=== PATIENT | male | born 1955 | race Caucasian/White ===

== ENCOUNTER 2018-10-05 08:09 | Day surgery (SDC) | payer BC ==
[~2018-10-05 08:09] MED LIST: Lactated Ringers 1,000 ML IV SCH; Lidocaine 1%/Sod Bicarbonate in NS 8.4% 1 ML Syringe IDERM PRN; Sodium Chloride 0.9% 10 ML Syringe FLUSH PRN
--- NOTE | 2018-10-05 09:22 | PCM.PREANE ---
Preanesthetic Assessment - Procedure Proposed Procedure: right 1st CMC joint trapezietomy with tight rope, left 1st CMC joint steroid injection - Anesthesia/Transfusion/Family Hx Anesthesia History: Prior Anesthesia Reaction Type of Anesthesia Reaction: Anesthesia Awareness (remembers induction during thyroid surgery ) Family History of Anesthesia Reaction: No Transfusion History: No Prior Transfusion(s) Intubation History: Unknown - Review of Systems General: No Symptoms Pulmonary: No Symptoms Cardiovascular: No Symptoms Gastrointestinal: No Symptoms Neurological: Headache Other: Reports: Diabetes, Thyroid Problems (thyroidectomy ) - Physical Assessment NPO Status Date: 10/04/18 NPO Status Time: 22:00 Pulse: 66 O2 Sat by Pulse Oximetry: 98 Respiratory Rate: 16 Blood Pressure: 149/109 Vital Signs: Last Vital Signs Temp 36.7 C 10/05/18 08:30 Pulse 66 10/05/18 08:30 Resp 16 10/05/18 08:30 BP 149/109 H 10/05/18 08:30 Pulse Ox 94 L 10/05/18 08:30 Height: 1.83 m Weight: 94.347 kg ASA Class: 2 Mental Status: Alert & Oriented x3 Airway Class: Mallampati = 3 Dentition: Reports: Zeb(s), Bridge (permanent ) Thyro-Mental Finger Breadths: 2 Mouth Opening Finger Breadths: 4 ROM/Head Extension: Limited/Partial (cervical neck pain) Lungs: Clear to Auscultation, Normal Respiratory Effort Cardiovascular: Regular Rate, Regular Rhythm - Lab Values: Laboratory Last Values POC Glucose 104 mg/dL (80-115) 10/05/18 08:46 MRSA (PCR) Negative 09/26/18 10:10 - Allergies Allergies/Adverse Reactions: Allergies Allergy/AdvReac Type Severity Reaction Status Date / Time No Known Allergies Allergy Verified 10/04/18 13:27 - Blood Blood Available: No - Anesthesia Plan Pre-Op Medication Ordered: None - Acknowledgements Anesthesia Type Planned: General Anesthesia Pt an Appropriate Candidate for the Planned Anesthesia: Yes Alternatives and Risks of Anesthesia Discussed w Pt/Guardian: Yes Pt/Guardian Understands and Agrees with Anesthesia Plan: Yes PreAnesthesia Questionnaire HEENT History: Reports: Impaired Vision, Other (See Below) Other HEENT History: wears glasses Cardiovascular History: Reports: CAD, High Cholesterol, Hypertension, Stents Respiratory History: Reports: None Genitourinary History: Reports: None 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: 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: 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 Musculoskeletal History: Reports: Osteoarthritis, Other (See Below) Other Musculoskeletal History: right wrist pain Neurological History: Reports: Other (See Below) Other Neuro History: chronic cervical pain Psychiatric History: Reports: None Endocrine/Metabolic History: Reports: Diabetes, Type II, Hypothyroidism, Other ( See Below) Other Endocrine/Metabolic History: hashimotos Hematologic History: Reports: None Immunologic History: Reports: None Oncologic (Cancer) History: Reports: None Dermatologic History: Reports: Other (See Below) Other Dermatologic History: skin lesion, skin tag, sebaceous cyst - Past Surgical History HEENT Surgical History: Reports: Tonsillectomy Cardiovascular Surgical History: Reports: None Respiratory Surgical History: Reports: None GI Surgical History: Reports: Colonoscopy, EGD Female Surgical History: Reports: None Male Surgical History: Reports: None Endocrine Surgical History: Reports: Thyroidectomy Neurological Surgical History: Reports: None Musculoskeletal Surgical History: Reports: Other (See Below) Other Musculoskeletal Surgeries/Procedures:: rotator cuff repair x 2 Oncologic Surgical History: Reports: None - SUBSTANCE USE Smoking Status *Q: Never Smoker Recreational Drug Use History: No - HOME MEDS Home Medications: Home Meds Levothyroxine [Levothroid] 137 mcg PO DAILY 03/14/14 [History] metFORMIN [Glucophage] 1,000 mg PO BEDTIME 03/14/14 [History] Hydrochlorothiazide/Losartan [Hyzaar 100-12.5 MG] 1 tab PO DAILY 10/28/14 [ History] Vitamin B Complex 1 each PO DAILY 10/28/14 [History] Diclofenac Sodium [Voltaren 1% Gel] 1 dose TOP DAILY PRN 10/04/18 [History] Imipramine HCl [Tofranil] 25 mg PO BEDTIME 10/04/18 [History] Isogenic Joint Cap 2 cap PO DAILY 10/04/18 [History] atorvaSTATin Calcium [Atorvastatin Calcium] 20 mg PO DAILY 10/04/18 [History] valACYclovir [Valtrex] 1,000 mg PO BID PRN 10/04/18 [History] Acetaminophen/HYDROcodone [[place] 325-5 MG] 1 - 2 tab PO Q6H PRN #40 tablet 10/05 [Rx] - CURRENT (IN HOUSE) MEDS Current Meds: Current Medications Lactated Ringer's (Ringers, Lactated) 1,000 mls @ 125 mls/hr IV ASDIRECTED SHOAIB Stop: 12/06/18 23:00 Last Admin: 10/05/18 08:46 Dose: 125 mls/hr Lidocaine/Sodium Bicarbonate (Buffered Lidocaine 1% In Ns 8.4%) 0.25 ml IDERM ONETIME PRN PRN Reason: Prior to IV Start Stop: 10/05/18 18:00 Last Admin: 10/05/18 08:46 Dose: 0.25 ml Sodium Chloride (Saline Flush) 10 ml FLUSH ASDIRECTED PRN PRN Reason: Keep Vein Open Stop: 10/05/18 18:00
[2018-10-05] MEDS ORDERED: Propofol 200 MG/20 ML SDV ONE (09:42)
[2018-10-05] MEDS ORDERED: fentaNYL 250 MCG/5 ML SDV ONE (09:43)
[2018-10-05] MEDS ORDERED: Midazolam 1 MG/ML 2 ML SDV ONE ×2 (09:43→11:34)
[2018-10-05] MEDS ORDERED: Lidocaine 1% 4 ML ONE (09:44)
[2018-10-05] MEDS ORDERED: Ondansetron 4 MG/2 ML SDV ONE (09:45)
[2018-10-05] MEDS ORDERED: ceFAZolin 1 GM Vial ONE (09:46)
[2018-10-05] MEDS ORDERED: ePHEDrine/Normal Saline 25 MG/5 ML Syringe ONE (10:54)
[2018-10-05] MEDS: Bupivacaine 0.25% 30 ML SDV ONE ×4 (11:10→11:49)
[2018-10-05] MEDS: Triamcinolone Acetonide 40 MG/ML 1 ML MDV ONE ×2 (11:12→11:49)
[2018-10-05] MEDS ORDERED: Lactated Ringers 1,000 ML ONE (11:14)
[2018-10-05] MEDS ORDERED: Rocuronium 50 MG/5 ML Vial ONE (11:32)
[2018-10-05] MEDS ORDERED: diphenhydrAMINE 50 MG/ML SDV IVPUSH PRN (12:06)
[2018-10-05] MEDS ORDERED: fentaNYL 100 MCG/2 ML SDV IVPUSH PRN (12:06)
[2018-10-05] MEDS ORDERED: Ondansetron 4 MG/2 ML SDV IVPUSH PRN (12:06)
[2018-10-05] MEDS ORDERED: Meperidine 50 MG/ML Vial IVPUSH PRN (12:06)
--- NOTE | 2018-10-05 12:06 | PCM.POSTAN ---
POST ANESTHESIA ASSESSMENT - MENTAL STATUS Mental Status: Other (drowsy ) - VITAL SIGNS Pulse Rate: 95 SaO2: 95 Resp Rate: 19 Blood Pressure: 152/86 Temperature: 98 C - RESPIRATORY Respiratory Status: Respiratory Rate WNL, Airway Patent, O2 Saturation Stable - CARDIOVASCULAR CV Status: Pulse Rate WNL, Blood Pressure Stable - GASTROINTESTINAL GI Status: No Symptoms - PAIN Pain Score: 4 (treated ) - POST OP HYDRATION Hydration Status: Adequate & Stable
[2018-10-05] MEDS ORDERED: Ketorolac 30 MG/ML SDV IVPUSH SCH (12:15)
[2018-10-05] MEDS ORDERED: Acetaminophen/HYDROcodone 325-5 MG Tab PO PRN (12:18)
[2018-10-05 14:05] VITALS: BP 151/95
--- NOTE | 2018-10-05 14:08 | PCM48HPAN ---
Post Anesthesia Note - EVALUATION WITHIN 48HRS OF ANESTHETIC Vital Signs in Normal Range: Yes Patient Participated in Evaluation: Yes Respiratory Function Stable: Yes Airway Patent: Yes Cardiovascular Function Stable: Yes Hydration Status Stable: Yes Pain Control Satisfactory: Yes Nausea and Vomiting Control Satisfactory: Yes Mental Status Recovered: Yes
--- NOTE | 2018-10-05 14:27 | CR ---
Right wrist: Three fluoroscopic spot views were obtained of the right wrist. Study obtained utilizing C-arm device. Exam shows resection of the trapezium bone. Fixation anchors are noted between the first and second metacarpals. Fluoroscopy time is given as 8.0 seconds. Impression: 1. Operative study as noted above. Diagnostic code #2
--- NOTE | 2018-10-16 07:14 | PCM.OPNOTE ---
- General Post-Op/Procedure Note Date of Surgery/Procedure: 10/05/18 Operative Procedure(s): right first carpometacarpal joint trapeziectomy with right rope suspension and left first carpometacarpal joint injection Pre Op Diagnosis: bilateral basilar thumb joint osteoarthrosis Post-Op Diagnosis: Same Anesthesia Technique: General LMA, Local Primary Surgeon: Hai Acosta Anesthesia Provider: Lucy Beckford Delimber Operator: Jina Lopez in mLs: 5 Complications: None Condition: Good
--- NOTE | 2018-10-16 09:20 | OR ---
DATE OF OPERATION: 10/05/2018 SURGEON: Hai Acosta MD OPERATION PERFORMED: Right first carpometacarpal joint trapeziectomy with tight rope suspension and left first carpometacarpal joint injection. PREOPERATIVE DIAGNOSIS: Bilateral basilar thumb joint osteoarthrosis. POSTOPERATIVE DIAGNOSIS: Bilateral basilar thumb joint osteoarthrosis. ANESTHESIA: General LMA with local. ANESTHESIA PROVIDER: Osvaldo Patel. MARZIPAN MOLDER: Jina Lopez PA-C. ESTIMATED BLOOD LOSS: 5 mL. COMPLICATIONS: None. CONDITION: Stable. DESCRIPTION OF PROCEDURE: The patient was identified in the preop holding area. Proper site was marked and identified by the surgeon. The patient was taken back to the operating theater where after adequate anesthesia, the patient's right upper extremity was sterilely prepped and draped in the usual sterile fashion. OR time-out was performed. The patient received 2 g of IV Ancef. At this time, the right upper extremity was exsanguinated and tourniquet was insufflated to 225 mmHg. Standard dorsal incision was made and centered over the first carpometacarpal joint. This was taken down to the thumb extensor which was then retracted laterally and a capsulotomy was then performed. Care was taken to protect the neurovascular bundle at this time. Once the capsulotomy was performed, the trapezium was identified and a rongeur as well as an osteotome was used to resect the trapezium and hole. C-arm fluoroscopy was utilized to make sure that there were no remaining fragments of the trapezium. Once this was completely resected, a guide pin for the Arthrex TightRope was placed at the radial side of the base of the first metacarpal into the midportion of the second metacarpal under direct C-arm fluoroscopy as well as visualization. It was found to have adequate purchase in both bones. The EndoButton was then fixated on the first metacarpal and then another one was on the second metacarpal. This was then tensioned so the patient could get the palm flat on the table with good bounce back, but not over tensioned or undertensioned. At this time, this was then tied and found to have adequate positioning under C-arm fluoroscopy. Adequate saline was irrigated through the wound. 2-0 Vicryl was used for closure of the capsule, 3-0 Vicryl was used subcutaneously, and skin closure was with Monocryl at this time. The patient was placed in sterile soft dressing and a splint, and after this was completed, 1 mL of 40 mg Kenalog and 2 mL of 0.25% Marcaine were injected to the left first basilar thumb joint. The patient tolerated both procedures well and was sent to the PACU in stable condition. GIANCARLO /[id number]
== END 2018-10-05 14:13 | disposition home or self-care (01) ==
LOC: JD.SDS 08:09
PROVIDERS: ATTEND Orthopaedic Surgery
DX: M18.0 Bilateral primary osteoarthritis of first carpometacarpal joints (principal); E66.3 Overweight; I10 Essential (primary) hypertension; I25.10 Atherosclerotic heart disease of native coronary artery without angina pectoris; E06.3 Autoimmune thyroiditis; E11.9 Type 2 diabetes mellitus without complications; E78.5 Hyperlipidemia, unspecified; Z79.82 Long term (current) use of aspirin; Z79.84 Long term (current) use of oral hypoglycemic drugs; Z68.28 Body mass index [BMI] 28.0-28.9, adult
CPT/HCPCS: 20600; 25447; 76000; 82962; 87641; A9270; C1776; J0690; J2250; J2405; J2704; J3010; J3301; J3490; J7050; J7120; 01830; J2001

== ENCOUNTER 2020-09-29 08:03 | Day surgery (SDC) | payer MEDICARE, BC ==
[~2020-09-29 08:03] MED LIST changes: +Acetaminophen 325 MG Tab PO SCH; +Dexamethasone 4 MG/ML 5 ML MDV ONE; +Ketamine 500 mg/10 ML MDV ONE; +Ketorolac 30 MG/ML SDV ONE; +Lactated Ringers 1,000 ML ONE; +Lidocaine 1% 4 ML ONE; +Midazolam 1 MG/ML 2 ML SDV ONE; +Ondansetron 4 MG/2 ML SDV ONE; +Pregabalin 25 MG Cap PO SCH; +Propofol 200 MG/20 ML SDV ONE; +ceFAZolin 1 GM Vial ONE; +oxyCODONE ER 10 MG TAB.ER PO SCH
[2020-09-29] MEDS ORDERED: Ondansetron 4 MG/2 ML SDV IVPUSH PRN (08:53)
--- NOTE | 2020-09-29 08:53 | PCM.PREANE ---
Preanesthetic Assessment - Procedure Proposed Procedure: Left Total Knee Arthroplasty Right Knee Steroid Injection - Anesthesia/Transfusion/Family Hx Anesthesia History: Prior Anesthesia Reaction (Urinary Retention with General Anesthesia in the past.) Family History of Anesthesia Reaction: No Transfusion History: No Prior Transfusion(s) Intubation History: Unknown - Review of Systems General: No Symptoms Pulmonary: No Symptoms (Never a smoker) Cardiovascular: Other (Sent x1 placed in 2013. No further cardiac issues since stent placement. Recent ECHO EF 60-65%, grade I diastolic dysfunction. ) Gastrointestinal: No Symptoms Neurological: Dizziness (Recent Carotid dopplers done. ) Other: Reports: Diabetes (type II, on oral agent for control. ) - Physical Assessment NPO Status Date: 09/28/20 NPO Status Time: 21:30 Vital Signs: Last Vital Signs Temp 36.6 C 09/29/20 08:05 Pulse 89 09/29/20 08:05 Resp 16 09/29/20 08:05 BP 141/93 H 09/29/20 08:05 Pulse Ox 95 09/29/20 08:05 Height: 1.83 m Weight: 92.533 kg ASA Class: 2 Mental Status: Alert & Oriented x3 Airway Class: Mallampati = 3 Dentition: Reports: Bridge (Upper Front Permanent) Thyro-Mental Finger Breadths: 3 Mouth Opening Finger Breadths: 3 ROM/Head Extension: Full Lungs: Clear to Auscultation, Normal Respiratory Effort Cardiovascular: Regular Rate, Regular Rhythm - Lab Values: Laboratory Last Values MRSA (PCR) Negative 09/17/20 16:50 - Allergies Allergies/Adverse Reactions: Allergies Allergy/AdvReac Type Severity Reaction Status Date / Time No Known Allergies Allergy Verified 09/24/20 11:43 - Anesthesia Plan Pre-Op Medication Ordered: Anxiolytic - Acknowledgements Anesthesia Type Planned: Spinal Pt an Appropriate Candidate for the Planned Anesthesia: Yes Alternatives and Risks of Anesthesia Discussed w Pt/Guardian: Yes Pt/Guardian Understands and Agrees with Anesthesia Plan: Yes PreAnesthesia Questionnaire HEENT History: Reports: None Other HEENT History: wears glasses Cardiovascular History: Reports: Angina, CAD, Hypertension Other Cardiovascular History: hyperlipidemia Respiratory History: Reports: SOB Gastrointestinal History: Reports: None Genitourinary History: Reports: None 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 Musculoskeletal History: Reports: Back Pain, Chronic, Osteoarthritis Other Musculoskeletal History: knee pain, Neurological History: Reports: None Other Neuro History: chronic cervical pain Psychiatric History: Reports: None Other Psychiatric History: insomnia Endocrine/Metabolic History: Reports: Diabetes, Type II, Hypothyroidism Other Endocrine/Metabolic History: hashimotos Hematologic History: Reports: None Immunologic History: Reports: None Oncologic (Cancer) History: Reports: None Dermatologic History: Reports: Other (See Below) Other Dermatologic History: skin lesion, skin tag, sebaceous cyst - Past Surgical History HEENT Surgical History: Reports: None Cardiovascular Surgical History: Reports: None GI Surgical History: Reports: None Male Surgical History: Reports: None Endocrine Surgical History: Other Endocrine Surgeries/Procedures: thyroid surgery Musculoskeletal Surgical History: Reports: Shoulder Surgery Oncologic Surgical History: Reports: None - SUBSTANCE USE Tobacco Use Status *Q: Never Tobacco User Recreational Drug Use History: No - HOME MEDS Home Medications: Home Meds Levothyroxine [Levothroid] 137 mcg PO DAILY 03/14/14 [History] metFORMIN [Glucophage] 500 mg PO BID 03/14/14 [History] Hydrochlorothiazide/Losartan [Hyzaar 100-12.5 MG] 1 tab PO DAILY 10/28/14 [Hist ory] Vitamin B Complex 1 each PO DAILY 10/28/14 [History] Diclofenac Sodium [Voltaren 1% Gel] 1 dose TOP DAILY PRN 10/04/18 [History] Isogenic Joint Cap 2 cap PO DAILY 10/04/18 [History] atorvaSTATin Calcium [Atorvastatin Calcium] 20 mg PO DAILY 10/04/18 [History] Cholecalciferol (Vitamin D3) [Vitamin D] 1 tab PO DAILY 09/24/20 [History] Nitroglycerin [Nitrostat] 0.4 mg PO ASDIRECTED PRN 09/24/20 [History] Aspirin [Adult Low Dose Aspirin EC] 81 mg PO DAILY 09/29/20 [History] Aspirin [Aspirin EC] 325 mg PO BID #84 tab 09/29/20 [Rx] Cyclobenzaprine [Flexeril] 10 mg PO BID PRN #20 tab 09/29/20 [Rx] oxyCODONE 5 - 10 mg PO Q4H PRN #60 tab 09/29/20 [Rx] - CURRENT (IN HOUSE) MEDS Current Meds: Current Medications Acetaminophen (Tylenol) 975 mg PO NOW SHOAIB Stop: 09/29/20 16:00 Last Admin: 09/29/20 08:13 Dose: 975 mg Documented by: Morphine Sulfate 8 mg/Epinephrine HCl 0.3 mg/Cefuroxime Sodium 750 mg/Ketorolac Tromethamine 30 mg/Sodium Chloride 7.9 ml 0 mg .XX ASDIRECTED PRN PRN Reason: Pain Stop: 09/29/20 13:00 Lactated Ringer's (Ringers, Lactated) 1,000 mls @ 125 mls/hr IV ASDIRECTED SHOAIB Stop: 09/29/20 23:00 Lidocaine/Sodium Bicarbonate (Buffered Lidocaine 1% In Ns 8.4%) 0.25 ml IDERM ONETIME PRN PRN Reason: Prior to IV Start Stop: 09/29/20 18:00 Oxycodone HCl (Oxycontin) 10 mg PO ONETIME SHOAIB Stop: 09/29/20 16:00 Last Admin: 09/29/20 08:13 Dose: 10 mg Documented by: Pregabalin (Lyrica) 50 mg PO ONETIME SHOAIB Stop: 09/29/20 16:00 Last Admin: 09/29/20 08:13 Dose: 50 mg Documented by: Sodium Chloride (Saline Flush) 10 ml FLUSH ASDIRECTED PRN PRN Reason: Keep Vein Open Stop: 09/29/20 18:00 Discontinued Medications Bupivacaine HCl (Sensorcaine-Mpf 0.25%) Confirm Administered Dose 40 ml .ROUTE .STK-MED ONE Stop: 09/29/20 08:15 Cefazolin Sodium (Ancef) Confirm Administered Dose 2 gm .ROUTE .STK-MED ONE Stop: 09/29/20 07:46 Dexamethasone (Dexamethasone) Confirm Administered Dose 20 mg .ROUTE .STK-MED ONE Stop: 09/29/20 07:47 Lactated Ringer's (Ringers, Lactated) Confirm Administered Dose 1,000 mls @ as directed .ROUTE .STK-MED ONE Stop: 09/29/20 07:46 Lidocaine HCl (Xylocaine-Mpf 1%) Confirm Administered Dose 4 mls @ as directed .ROUTE .STK-MED ONE Stop: 09/29/20 07:47 Ketamine HCl (Ketalar) Confirm Administered Dose 500 mg .ROUTE .STK-MED ONE Stop: 09/29/20 07:47 Ketorolac Tromethamine (Toradol) Confirm Administered Dose 30 mg .ROUTE .STK-MED ONE Stop: 09/29/20 07:46 Midazolam HCl (Versed 1 Mg/Ml) Confirm Administered Dose 2 mg .ROUTE .STK-MED ONE Stop: 09/29/20 07:47 Ondansetron HCl (Zofran) Confirm Administered Dose 4 mg .ROUTE .STK-MED ONE Stop: 09/29/20 07:47 Propofol (Diprivan 20 Ml) Confirm Administered Dose 600 mg .ROUTE .STK-MED ONE Stop: 09/29/20 07:47 Tranexamic Acid (Cyklokapron) Confirm Administered Dose 1,000 mg .ROUTE .STK-MED ONE Stop: 09/29/20 08:15 Triamcinolone Acetonide (Kenalog-40) Confirm Administered Dose 80 mg .ROUTE .STK-MED ONE Stop: 09/29/20 08:14 Vancomycin HCl (Vancomycin) Confirm Administered Dose 1 gm .ROUTE .STK-MED ONE Stop: 09/29/20 08:14
[2020-09-29] MEDS ORDERED: Midazolam 1 MG/ML 2 ML SDV ONE (09:04)
[2020-09-29] MEDS: Bupivacaine 0.25% 10 ML SDV ONE ×4 (09:58→10:49)
[2020-09-29] MEDS: Triamcinolone Acetonide 40 MG/ML 1 ML SDV ONE ×4 (09:59→10:49)
[2020-09-29] MEDS: Vancomycin 1 GM SDV ONE ×2 (09:59→10:37)
[2020-09-29] MEDS: Morphine 8 MG, EPINEPHrine 0.3 MG, Cefuroxime 750 MG, Ketorolac 30 MG, Sodium Chloride ... PRN ×10 (10:00→10:20)
[2020-09-29] MEDS ORDERED: Propofol 200 MG/20 ML SDV ONE (10:01)
[2020-09-29] MEDS ORDERED: EPINEPHrine 1 MG/ML SDV ONE (11:09)
[2020-09-29] MEDS ORDERED: Ropivacaine 0.5% 5 MG/ML 30 ML SDV ONE (11:09)
[2020-09-29] MEDS ORDERED: oxyCODONE 5 MG Tab PO PRN (11:35)
[2020-09-29] MEDS ORDERED: Cyclobenzaprine 10 MG Tab PO ONE (11:36)
[2020-09-29] MEDS: HYDROmorphone 0.5 MG/0.5 ML Syringe IVPUSH PRN ×2 (11:43→12:09)
[2020-09-29] MEDS: fentaNYL 100 MCG/2 ML SDV IVPUSH PRN ×2 (11:49→12:15)
--- NOTE | 2020-09-29 12:00 | PCM.POSTAN ---
POST ANESTHESIA ASSESSMENT - MENTAL STATUS Mental Status: Other (Drowsy) - VITAL SIGNS Vital Signs: Last Vital Signs Temp 36.3 C 09/29/20 11:45 Pulse 86 09/29/20 11:45 Resp 11 L 09/29/20 11:45 BP 156/93 H 09/29/20 11:45 Pulse Ox 98 09/29/20 11:45 1059 106/60 81 15 95% 97 F - RESPIRATORY Respiratory Status: Respiratory Rate WNL, Airway Patent, O2 Saturation Stable - CARDIOVASCULAR CV Status: Pulse Rate WNL, Blood Pressure Stable - GASTROINTESTINAL GI Status: No Symptoms - PAIN Pain Score: 0 - POST OP HYDRATION Hydration Status: Adequate & Stable
--- NOTE | 2020-09-29 12:03 | PCM.SN.2 ---
- Free Text/Narrative Note: Left selective femoral nerve block at the adductor canal for post-procedure pain control under US guidance requested by Dr. Acosta. Date: 09/29/20 Time Out: 1123 Start: 1123 End: 1127 Chart reviewed. Consent signed. Questions answered. Appropriate monitors applied. Time out performed. Left mid-shaft femur identified with ultrasound, scanning medially of femur, the femoral artery in the adductor canal visualized, and the femoral nerve located laterally to the artery. The skin was prepped lateral to the ultrasound probe with chlorahexadine times two. The 21ga 4 insulated block needle was inserted under direct ultrasound guidance into the adductor canal. 25mL of 0.5% ropivacaine with 1:200,000 epinephrine was injected circumferentially around the nerve with intermittent negative aspiration noted. Patient tolerated the procedure well. Sterile technique noted along with sterile gloves, mask, and sterile probe cover. See picture on progress note and vital signs on nurses notes. Block completed in PACU. Mitchel Santos CRNA
--- NOTE | 2020-09-29 14:11 | CR ---
PROCEDURE INFORMATION: Exam: XR Left Knee Exam date and time: 09/29/2020 11:21 AM Age: 65 years old Clinical indication: Screening exam; Post op; Prior surgery; Surgery date: Post- operative (0-2 days) TECHNIQUE: Imaging protocol: XR Left knee. Views: 1 or 2 views. COMPARISON: CR Knee Standing AP Bi 07/29/2020 1:53 PM FINDINGS: Bones/joints: A left total knee arthroplasty has been placed. There is anatomic alignment. No fractures are identified. Soft tissues: Normal. IMPRESSION: Status post left total knee arthroplasty. No fractures identified. Thank you for allowing us to participate in the care of your patient. Dictated and Authenticated by: Anish Chakraborty MD 09/29/2020 12:54 PM Central Time ([place] & [place]) [place]
[2020-09-29 15:11] VITALS: BP 142/94; PULSE 89
--- NOTE | 2020-10-06 07:32 | PCM.OPNOTE ---
- General Post-Op/Procedure Note Date of Surgery/Procedure: 09/29/20 Operative Procedure(s): bilateral knee osteoarthrosis Pre Op Diagnosis: left total knee arthroplasty with right knee corticosteroid injection Post-Op Diagnosis: Same Anesthesia Technique: Local, MAC, Spinal Primary Surgeon: Hai Acosta Anesthesia Provider: Ann Santos Flame Gouger: Jina Lopez Flame Gouger: Swapna Pham EBL in mLs: 5 Complications: None Condition: Good Free Text/Narrative:: 6 femur 5 tibia [id number] cemented patella 9mm
--- NOTE | 2020-10-07 14:42 | OR ---
DATE OF OPERATION: 09/29/2020 SURGEON: Hai Acosta MD OPERATION PERFORMED: Left total knee arthroplasty with right knee corticosteroid injection. PREOPERATIVE DIAGNOSIS: Bilateral knee osteoarthrosis. POSTOPERATIVE DIAGNOSIS: Bilateral knee osteoarthrosis. ANESTHESIA: Local MAC with spinal. ANESTHESIA PROVIDER: Kristina Coles. ASSISTANTS: Jina Lopez PA-C and Swapna Pham LPN ESTIMATED BLOOD LOSS: 5 mL. COMPLICATIONS: None. CONDITION: Stable. IMPLANTS: 1. [place] size 6 press-fit femur. 2. [place] size 5 press-fit tibial base plate. 3. [place] size 35 x 10 mm cemented asymmetric patella. 4. [place] size 5, 9 mm CS polyethylene insert. DESCRIPTION OF PROCEDURE: The patient was identified in the preop holding area. Proper site was marked and identified by the surgeon. The patient was taken back to the operating theater. After adequate anesthesia, the patient's left lower extremity had a nonsterile tourniquet applied and it was sterilely prepped and draped in the usual sterile fashion. OR time-out was performed. The patient received 2 g IV Ancef. At this time, the left lower extremity was exsanguinated. Tourniquet was insufflated to 300 mmHg. Standard medial parapatellar incision was made. Medial parapatellar arthrotomy was created. Deep fibers of the MCL were raised and anterior fat pad was resected. At this time, attention was turned to the patella. Patella measured 25, it was resected to a 15 for a 35 x 10 mm patella. Drill holes were then drilled and found to be in adequate position. The drill was then drilled in the distal femur and the intramedullary distal femoral cutting guide was then placed. 8 mm was resected off the distal femur and was found to be an adequate resection. Sizing guide was placed. It was found to be a size 6 press-fit CR femur that was shown on the implant record at the beginning of this dictation. The drill holes were drilled for the epicondylar axis using [place]itesides line and epicondyles as reference. At this time, the 4-in- 1 cutting block was placed. An anterior posterior and anterior and posterior chamfer cuts were then completed. Attention was turned to the tibia. The posterior medial lateral retractors were placed. The extramedullary tibial guide was placed. It was placed in the old footprint of the ACL. It was aligned with the center of the ankle and 0 degrees of slope, 9 mm was then resected off the unaffected side. There was found to be an acceptable reduction. At this time, posterior osteophytes were removed along with medial and lateral meniscus. A trial implant was placed with a correct sized tibia that was mentioned at the beginning of the dictation. A Harshad size 5, 9 mm CS polyethylene insert was then placed. The patient's knee was brought through range of motion. The patella was tracking centrally and was stable to varus and valgus stress. Alignment was found to be roughly at 0 degrees. The tibia was stamped and drilled in proper rotation. The universal tibial base plate was impacted in place. Next, the [place] size 6 press-fit CR femur impacted into place and the Harshad size 5, 9 mm CS polyethylene insert was placed. The patient's knee was brought into full extension. The patella was found to have softer bone so I decided to cement it at this time. One liter Irricept solution was irrigated through the knee along with 1 L of pulse lavage irrigation with Ancef. Periarticular injection was then completed. The patient's knee was brought through a range of motion. Once the cement had time to set up and it was found to be stable to varus valgus stress, the patella was tracking centrally with full range of motion. At this time, a #2 barbed suture was used for closure of the medial parapatellar arthrotomy. Topical tranexamic acid was placed. 2-0 Vicryl was used subcutaneously, Prineo was used for the skin. The patient tolerated the procedure well and was sent to the PACU in stable condition. Under sterile technique, 2 mL of 40 mg of Kenalog and 4 mL of 0.25% Marcaine was injected to the right knee. The patient tolerated all procedures well. GIANCARLO /[id number] V[place]
== END 2020-09-29 14:53 | disposition home or self-care (01) ==
LOC: JD.SDS 08:03
PROVIDERS: ATTEND Orthopaedic Surgery
DX: M17.0 Bilateral primary osteoarthritis of knee (principal); E78.5 Hyperlipidemia, unspecified; I10 Essential (primary) hypertension; E03.9 Hypothyroidism, unspecified; I25.10 Atherosclerotic heart disease of native coronary artery without angina pectoris; G89.18 Other acute postprocedural pain; Z79.82 Long term (current) use of aspirin; Z79.899 Other long term (current) drug therapy; Z79.84 Long term (current) use of oral hypoglycemic drugs; Z79.890 Hormone replacement therapy; Z98.890 Other specified postprocedural states
CPT/HCPCS: 01402; 36415; 64450; 73560-26-LT; 73560-LT; 82962; 85610; 85730; 87641; 97116-GP; 97161-GP; 97165-GO; A9270-GY; C1776; J0171; J0690; J0697; J1100; J1170; J1885; J2001; J2250; J2270; J2405; J2704; J2795; J3010; J3301; J3370; J3490; J7120

== ENCOUNTER 2022-09-20 06:25 | Day surgery (SDC) | payer MEDICARE, BC ==
[~2022-09-20 06:25] MED LIST changes: -Dexamethasone 4 MG/ML 5 ML MDV ONE; -Ketamine 500 mg/10 ML MDV ONE; -Ketorolac 30 MG/ML SDV ONE; -Lactated Ringers 1,000 ML ONE; -Ondansetron 4 MG/2 ML SDV ONE; +Sodium Chloride 0.9% 10 ML Syringe FLUSH SCH; +Tranexamic Acid 1,000 MG/10 ML Vial ONE; +Vancomycin 1 GM SDV ONE; -ceFAZolin 1 GM Vial ONE; +ceFAZolin 2 GM Vial ONE; +fentaNYL 100 MCG/2 ML SDV ONE
[2022-09-20] MEDS ORDERED: Morphine 8 MG, EPINEPHrine 0.3 MG, Cefuroxime 750 MG, Ketorolac 30 MG, Sodium Chloride ... PRN ×5 (06:34)
[2022-09-20] MEDS ORDERED: EPINEPHrine 1 MG/ML SDV ONE (06:40)
[2022-09-20] MEDS ORDERED: Ropivacaine 0.5% 5 MG/ML 30 ML SDV ONE (06:40)
[2022-09-20] MEDS ORDERED: ePHEDrine 50 MG/ML SDV ONE (07:20)
[2022-09-20] MEDS ORDERED: diphenhydrAMINE 50 MG/ML SDV IVPUSH PRN (07:32)
[2022-09-20] MEDS ORDERED: fentaNYL 100 MCG/2 ML SDV IVPUSH PRN (07:32)
[2022-09-20] MEDS ORDERED: Ondansetron 4 MG/2 ML SDV IVPUSH PRN (07:32)
[2022-09-20] MEDS ORDERED: Lactated Ringers 1,000 ML ONE (07:49)
[2022-09-20] MEDS ORDERED: oxyCODONE 5 MG Tab PO PRN (07:53)
[2022-09-20] MEDS ORDERED: Propofol 200 MG/20 ML SDV ONE (07:57)
[2022-09-20] MEDS ORDERED: Ketorolac 30 MG/ML SDV ONE (08:00)
[2022-09-20] MEDS ORDERED: Ondansetron 4 MG/2 ML SDV ONE (08:00)
[2022-09-20] MEDS ORDERED: Dexmedetomidine 200 MCG/2 ML SDV ONE (08:00)
[2022-09-20 12:50] VITALS: BP 123/82; PULSE 69
== END 2022-09-20 13:20 | disposition home or self-care (01) ==
LOC: JD.SDS 06:25
PROVIDERS: ATTEND Orthopaedic Surgery
DX: M17.11 Unilateral primary osteoarthritis, right knee (principal); I10 Essential (primary) hypertension; K21.9 Gastro-esophageal reflux disease without esophagitis; E11.9 Type 2 diabetes mellitus without complications; E03.9 Hypothyroidism, unspecified; G47.00 Insomnia, unspecified; I25.10 Atherosclerotic heart disease of native coronary artery without angina pectoris; M19.90 Unspecified osteoarthritis, unspecified site; Z79.899 Other long term (current) drug therapy; Z79.84 Long term (current) use of oral hypoglycemic drugs; Z79.890 Hormone replacement therapy; Z79.82 Long term (current) use of aspirin; Z98.890 Other specified postprocedural states; Z95.5 Presence of coronary angioplasty implant and graft; Z96.659 Presence of unspecified artificial knee joint
CPT/HCPCS: 0055T; 27447; 73560; 82947; 97116; 97161; A9270; C1713; C1776; J0171; J0690; J0697; J1885; J2250; J2270; J2405; J2704; J2795; J3010; J3370; J7120; 01402; 64450; 76942

== ENCOUNTER 2025-07-25 16:17 | Emergency (ER) | payer MEDICARE, BC ==
[2025-07-25 16:32] VITALS: BP 160/93; PULSE 89
[2025-07-25] MEDS ORDERED: Sodium Chloride 0.9% 10 ML Syringe FLUSH PRN (16:34)
[2025-07-25 16:51] LABS: BASOPHILS ABSOLUTE AUTO 0.1 K/mm3 (0.0-0.2); BASOPHILS PERCENT AUTO 0.4 % (0.0-1.0); EOSINOPHILS ABSOLUTE AUTO 0.2 K/mm3 (0.0-0.4); EOSINOPHILS PERCENT AUTO 1.2 % (0.0-6.0); IMMATURE GRAN ABSOLUTE AUTO 0.10 K/mm3 (0.00-0.05); IMMATURE GRAN PERCENT AUTO 0.7 % (0.0-0.4); LYMPHOCYTES ABSOLUTE AUTO 1.7 K/mm3 (1.0-4.8); LYMPHOCYTES PERCENT AUTO 12.2 % (24.0-44.0); MEAN PLATELET VOLUME 10.7 fl (9.4-12.4); MONOCYTES ABSOLUTE AUTO 1.4 K/mm3 (0.0-0.8); MONOCYTES PERCENT AUTO 10.3 % (0.0-8.0); NEUTROPHILS ABSOLUTE AUTO 10.3 K/mm3 (1.8-7.7); NEUTROPHILS PERCENT AUTO 75.2 % (41.0-71.0); NRBC ABSOLUTE 0.00 (0.00-0.02); NRBC PERCENT 0.0 % (0.0-0.2); PLATELET COUNT,PLT 205 K/mm3 (150-400); RED BLOOD CELL COUNT 5.66 M/mm3 (4.52-5.90); WHITE BLOOD CELL COUNT,WBC 13.76 K/mm3 (3.9-11.3)
[2025-07-25 17:18] LABS: A/G RATIO 1.0 (1-2); ALANINE AMINOTRANSFERASE,ALT 30.0 U/L (16-63); ASPARTATE AMNIOTRANSFERASE,AST 14.0 U/L (15-37); BILIRUBIN TOTAL 1.1 mg/dL (0.2-1.0); BLOOD UREA NITROGEN,BUN 25.0 mg/dL (7-18); CARBON DIOXIDE,CO2 27.0 mEq/L (21-32); CHLORIDE,CL 105.0 mEq/L (98-107); CREATININE 1.7 mg/dL (0.7-1.3); EST CRCL DRUG DOSING (CG) 44.38 mL/min; ESTIMATED GFR 43.0 mL/min (>60); GLUCOSE RANDOM 107.0 mg/dL (70-99); POTASSIUM,K 4.5 mEq/L (3.5-5.1); PROTEIN TOTAL,TP 7.5 g/dl (6.4-8.2); SODIUM,NA 140.0 mEq/L (136-145)
[2025-07-25 17:52] LABS: APPEARANCE,URINE CLEAR (Clear); GLUCOSE,URINE 2+ (Negative); OCCULT BLOOD,URINE NEGATIVE (Negative)
[2025-07-25] MEDS: Iopamidol 612 MG/ML 100 ML Bottle IVPUSH ONE (17:55)
[2025-07-25] MEDS: Sodium Chloride 0.9% 10 ML Syringe FLUSH ONE (17:55)
[2025-07-25] MEDS: Ketorolac 30 MG/ML SDV IVPUSH ONE (19:16)
== END 2025-07-25 19:25 | disposition home or self-care (01) ==
LOC: JD.ED 16:17
DX: N20.2 Calculus of kidney with calculus of ureter (principal); I10 Essential (primary) hypertension; I25.810 Atherosclerosis of coronary artery bypass graft(s) without angina pectoris; M19.90 Unspecified osteoarthritis, unspecified site; E03.9 Hypothyroidism, unspecified; E11.9 Type 2 diabetes mellitus without complications; Z79.890 Hormone replacement therapy; Z79.84 Long term (current) use of oral hypoglycemic drugs; Z79.82 Long term (current) use of aspirin; Z79.899 Other long term (current) drug therapy
CPT/HCPCS: 36415; 74177; 80053; 81003; 85025; 86140; 96361; 96374; 99284; A9270; J1885; J7030; Q9967